=== PATIENT | female | born 1960 | race Caucasian/White ===

== ENCOUNTER → 2019-06-09 14:58 | Outpatient (BNVA) | payer OTHER, MEDICARE, SELFPAY | PROVIDERS: Family Provider Family Medicine; PCP Family Medicine; Visit Provider Nurse Practitioner Family | DX: I10 Essential (primary) hypertension (principal); R42 Dizziness and giddiness; R51 Headache; Z86.39 Personal history of other endocrine, nutritional and metabolic disease; H93.19 Tinnitus, unspecified ear; H61.22 Impacted cerumen, left ear | CPT/HCPCS: 80053; 84439; 84443; 85025 ==

== ENCOUNTER → 2020-10-25 16:36 | Outpatient (BNVA) | payer MEDICARE, SELFPAY | PROVIDERS: Family Provider Family Medicine; PCP Family Medicine; Visit Provider Nurse Practitioner Family | DX: Z12.4 Encounter for screening for malignant neoplasm of cervix (principal); E55.9 Vitamin D deficiency, unspecified; I10 Essential (primary) hypertension; N63.0 Unspecified lump in unspecified breast | CPT/HCPCS: 80053; 80061; 82306; 84443; 88175 ==

== ENCOUNTER → 2022-03-05 09:15 | Outpatient (BNVA) | payer MEDICARE, SELFPAY | PROVIDERS: Family Provider Family Medicine; PCP Family Medicine; Visit Provider Nurse Practitioner Family | DX: R50.9 Fever, unspecified (principal); B34.9 Viral infection, unspecified | CPT/HCPCS: 87400 ==